=== PATIENT | female | born 1990 ===

== ENCOUNTER 2017-01-15 19:03 | Emergency (ER) | payer OTHER ==
[~2017-01-15] VITALS: Ht 165.1 cm; Wt 59.1 kg
[~2017-01-15 19:03] MED LIST: DOXYCYCLINE 10100 MG PO; FLAGYL500 MG PO; PHENERGAN 25 TA25 MG PO
[2017-01-15 19:05] VITALS: TEMP 98.1
[2017-01-15 19:43] LABS: COLLECTION METHOD CLEAN CATCH
[2017-01-15 20:48] LABS: AMORPHOUS CRYSTAL Present /uL; MUCOUS Present /lpf; PH 7 (5-8); URINE APPEARANCE Cloudy; URINE BACTERIA Rare /hpf; URINE BILIRUBIN Negative (NEGATIVE); URINE BLOOD 1+ (NEGATIVE); URINE COLOR Yellow; URINE GLUCOSE Negative (NEGATIVE); URINE KETONE Negative (NEGATIVE); URINE LEUKOCYTE ESTERASE Negative (NEGATIVE); URINE PROTEIN(semi-quant) 2+ (NEGATIVE); URINE UROBILINOGEN >=4.0 mg/dL (NEGATIVE)
[2017-01-15] MEDS ORDERED: FLAGYL500 MG PO (20:54)
[2017-01-15 21:20] VITALS: BP 123/83; PULSE 67
[2017-01-15 22:51] LABS: CHLAMYDIA/TRACH by PCR Female NOT DETECTED; NEISSERIA GON by PCR Female NOT DETECTED
== END 2017-01-15 21:20 | disposition home or self-care (01) ==
LOC: COL.ER 19:03
PROVIDERS: Emergency Medicine
DX: N76.0 Acute vaginitis (principal); Z32.02 Encounter for pregnancy test, result negative
CPT/HCPCS: J0696